=== PATIENT | male | born 1970 | race Caucasian/White ===

== ENCOUNTER 2016-11-27 19:39 | Emergency (ER) | payer SELFPAY ==
[~2016-11-27] VITALS: Ht 167.6 cm; Wt 75.0 kg
[2016-11-27 19:55] VITALS: BP 111/66; PULSE 86; RESP 16; TEMP 98.3; O2SAT 98
[2016-11-27] MEDS ORDERED: CEPH-460 PO (21:39)
[2016-11-27] MEDS ORDERED: BACT800T5 PO (21:39)
--- NOTE | 2016-11-27 21:39 | PD ---
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 He elected to discharge and the area was red. It became progressively more swollen. He has not had fever or chills. He has had not had nausea or vomiting. He does have some pain in the right inguinal area. He feels the area has become swollen PFS Past Medical History Medical History: Denies Significant Hx Diminished Hearing: No Immunizations Current: No Tetanus Vaccination: Unknown Influenza Vaccination: No Past Surgical History Surgical History: No Previous Surgery Social History Alcohol Use: Yes (SOCIAL) Tobacco Use: Yes (/2 PPD) Substance Use: No Allergies-Medications (Allergen,Severity, Reaction): Coded Allergies: No Known Allergies (Unverified , 11/27/16) Reported Meds & Prescriptions Reported Meds & Active Scripts Active No Active Prescriptions or Reported Medications Review of Systems General / Constitutional: No: Fever, Chills Eyes: No: Diploplia HENT: No: Headaches, Vertigo Cardiovascular: No: Chest Pain or Discomfort, Palpitations Respiratory: No: Cough, Shortness of Breath Gastrointestinal: No: Nausea, Vomiting Genitourinary: No: Urgency, Frequency Skin: Positive Rash Physical Exam Narrative GENERAL: Well-developed male SKIN: Focused skin assessment warm/dry. HEAD: Atraumatic. Normocephalic. EYES: Pupils equal and round. No scleral icterus. No injection or drainage. ENT: No nasal bleeding or discharge. Mucous membranes pink and moist. NECK: Trachea midline. No JVD. CARDIOVASCULAR: Regular rate and rhythm. No murmur appreciated. RESPIRATORY: No accessory muscle use. Clear to auscultation. Breath sounds equal bilaterally. GASTROINTESTINAL: Abdomen soft, non-tender, nondistended. Hepatic and splenic margins not palpable. On the right side of the abdomen and rash which is approximately 15-20 cm in size in diameter with a central punctum. It is warm MUSCULOSKELETAL: No obvious deformities. No clubbing. No cyanosis. No edema. NEUROLOGICAL: Awake and alert. No obvious cranial nerve deficits. Motor grossly within normal limits. Normal speech. PSYCHIATRIC: Appropriate mood and affect; insight and judgment normal. Data Data Last Documented VS Vital Signs Date Time Temp Pulse Resp B/P (MAP) Pulse Ox O2 Delivery O2 Flow Rate FiO2 11/27/16 19:55 98.3 86 16 111/66 (81) 98 Orders Orders Sulfamet-Trimeth Ds 800-160 Mg (Bactrim (11/27/16 21:45) Cephalexin (Keflex) (11/27/16 21:45) Prednisone (Deltasone) (11/27/16 21:45) MDM Medical Decision Making Medical Screen Exam Complete: Yes Emergency Medical Condition: Yes Medical Record Reviewed: Yes Differential Diagnosis Differential includes localized reaction to insect bite, cellulitis Narrative Course Patient be treated with Bactrim and Keflex Diagnosis Primary Impression: Abdominal wall cellulitis Scripts Cephalexin (Keflex) 500 Mg Capsule 500 MG PO QID for Infection for 7 Days, CAP 0 Refills Prov: Harlan Norwood MD 11/27/16 Sulfamethoxazole-Trimethoprim (Bactrim DS) 800-160 Mg Tab 1 TAB PO BID for Infection, #14 TAB 0 Refills Prov: Harlan Norwood MD 11/27/16 Disposition: 01 DISCHARGE HOME Condition: Stable Harlan Norwood MD Nov 27, 2016 21:39
[2016-11-27] MEDS ORDERED: SULFAMETHOXAZOLE-TRIMETHOPRIM DS 800-160 MG TAB PO ONE (21:45)
[2016-11-27] MEDS ORDERED: CEPHALEXIN MONOHYDRATE 500 MG CAP PO ONE (21:45)
[2016-11-27] MEDS ORDERED: predniSONE 20 MG TAB PO ONE (21:45)
[2016-11-27 22:10] VITALS: BP 121/68; PULSE 82; RESP 18; O2SAT 98
== END 2016-11-27 22:09 | disposition home or self-care (01) ==
LOC: PHED 19:39
DX: L03.311 Cellulitis of abdominal wall (principal); F17.210 Nicotine dependence, cigarettes, uncomplicated
CPT/HCPCS: 99284; J7512